=== PATIENT | female | born 1945 | race American Indian/Alaskan Native ===

== ENCOUNTER 2017-05-06 12:14 | Observation (INO) | payer MEDICAID, MEDICARE, OTHER ==
[2017-05-06 12:15] VITALS: BMI 29.9
--- NOTE | 2017-05-06 12:53 | ED PDOC ---
Arrival/HPI - General Chief Complaint: Chest Pain Time Seen by Provider: 05/06/17 12:30 Historian: Patient, Family (daughter) - History of Present Illness Narrative History of Present Illness (Text): 05/06/17 12:40 A 71 year old female, whose past medical history includes colon cancer( surgically removed 8 years ago, no chemotherapy), CVA(3 years ago, was given aspirin), RI, cardiac stents x 3, hypertension, and hyperlipidemia, whom is accompanied by her daughter, presents to the emergency department complaining of chest pain since yesterday. Patient reports not currently experiencing chest pain, only heavy pressure in chest "on and off". Patient notes also experiencing dizziness and near-syncope, but denies of any nausea, vomiting, diarrhea, shortness of breath, or any other complaints at this time. Also, patient mentions taking Aspirin 81 mg prior to arriving at emergency department. Denies any history of substance abuse or smoking; occasional drinker. States in the past took Plavix but stopped intake due to result of bleeding. PMD: Dr. Lulu Chakraborty Time/Duration: 24 hours Symptom Onset: Sudden Symptom Course: Unchanged Quality: Pressure (pressure-like heaviness to chest) Past Medical History - Provider Review Nursing Documentation Reviewed: Yes - Travel History Have you recently traveled outside [place] w/in the past 3 mons?: No - Infectious Disease Hx of Infectious Diseases: None - Reproductive Menopause: Yes - Cardiac Hx Cardiac Disorders: Yes Hx RI: Yes (2004) Hx Hypertension: Yes Other/Comment: HX: CARDIAC STENTS -PT. 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 - Gastrointestinal Hx Gastrointestinal Disorders: Yes Other/Comment: HX: COLON CANCER-HEMICOLECTOMY DONE - Genitourinary/Gynecological Hx Genitourinary Disorders: Yes Other/Comment: HX: HERNIA ABOVE MY VAGINA-REPAIRED" - Psychiatric Hx Psychophysiologic Disorder: No Hx Substance Use: No - Surgical History Hx Coronary Stent: Yes Other/Comment: HX: CARDIAC STENTS-PT. BELIEVES X3. HX: COLON CANCER- HEMICLECTOMY DONE. HX:" HERNIA ABOVE MY VAGINA-REPAIRED" - Anesthesia Hx Anesthesia: Yes Hx Anesthesia Reactions: No Hx Malignant Hyperthermia: No - Suicidal Assessment Feels Threatened In Home Enviroment: No Family/Social History - Physician Review Nursing Documentation Reviewed: Yes Family/Social History: No Known Family HX Smoking Status: Former Smoker Hx Alcohol Use: No Hx Substance Use: No Allergies/Home Meds Allergies/Adverse Reactions: Allergies Iodinated Contrast- Oral and IV Dye [Iodinated Contrast Media - Oral and] Allergy (Severe, Verified 05/06/17 12:28) ANAPHYLAXIS shellfish derived Allergy (Severe, Verified 05/06/17 12:28) ANAPHYLAXIS atorvastatin calcium [From Lipitor] Adverse Reaction (Intermediate, Verified 12:28) "MUSCLE CRAMPS" rosuvastatin calcium [From Crestor] Adverse Reaction (Intermediate, Verified 12:28) "MUSCLE CRAMPS" Home Medications: Home Meds Medication Instructions Recorded Confirmed Metoprolol Succinate [Toprol XL] 2.5 tab PO DAILY 11/11/12 05/06/17 Aspirin [Ecotrin] 81 mg PO DAILY 09/05/16 05/06/17 Clopidogrel [Plavix] 75 mg PO DAILY 09/05/16 05/06/17 amLODIPine [Norvasc] 5 mg PO DAILY 05/06/17 05/06/17 Review of Systems - Review of Systems Constitutional: Normal Eyes: Normal ENT: Normal Respiratory: absent: SOB Cardiovascular: Chest Pain (currently experiencing pressure-like heaviness in chest), Other (near-syncope) Gastrointestinal: absent: Diarrhea, Nausea, Vomiting Genitourinary Female: Normal Musculoskeletal: Normal Skin: Normal Neurological: Dizziness Endocrine: Normal Hemo/Lymphatic: Normal Psychiatric: Normal Physical Exam Vital Signs Reviewed: Yes Vital Signs Temp Pulse Pulse Resp BP BP Pulse Ox 05/06/17 16:38 64 18 141/77 98 05/06/17 12:52 67 154/89 H 05/06/17 12:26 98.8 F 74 17 154/90 H 99 Temperature: Afebrile Blood Pressure: Normal Pulse: Regular Respiratory Rate: Normal Appearance: Positive for: Well-Appearing Pain Distress: None Mental Status: Positive for: Alert and Oriented X 3 - Systems Exam Head: Present: Atraumatic, Normocephalic Pupils: Present: PERRL, Other (left eyepatch) Extroacular Muscles: Present: EOMI, Other (left eye patch) Conjunctiva: Present: Normal Ears: Present: Normal Mouth: Present: Moist Mucous Membranes Pharnyx: Present: Normal Nose (External): Present: Atraumatic Nose (Internal): Present: Normal Inspection Neck: Present: Normal Range of Motion Respiratory/Chest: Present: Clear to Auscultation, Good Air Exchange. No: Respiratory Distress, Accessory Muscle Use Cardiovascular: Present: Regular Rate and Rhythm, Normal S1, S2. No: Murmurs Abdomen: Present: Normal Bowel Sounds. No: Tenderness, Distention, Peritoneal Signs Back: Present: Normal Inspection Upper Extremity: Present: Normal Inspection Lower Extremity: Present: Normal Inspection Neurological: Present: GCS=15, CN II-XII Intact, Speech Normal Skin: Present: Warm, Normal Color Psychiatric: Present: Alert, Oriented x 3, Normal Insight, Normal Concentration Medical Decision Making ED Course and Treatment: 05/06/17 12:45 Impression: 71 year old female with pressure-like heaviness in chest at this time, currently not experiencing chest pain. or took 81mg asa already and will hold off on further a/c due to pt stating dizziness/room spinning and pending ct head. Plan: -- EKG -- Head CT -- Chest X-ray -- Labs -- O2 Nasal Cannula -- Reassess and disposition Prior Visits: Notes and results from previous visits were reviewed. Patient was last seen in the emergency department on 11/11/2012 for left jaw pain. Patient was discharged home. Progress Notes: 05/06/17 13:04 A 71 year old female, whose past medical history includes colon cancer( surgically removed 8 years ago, no chemotherapy), CVA(3 years ago, was given aspirin), RI, cardiac stents x 3, hypertension, and hyperlipidemia, whom is accompanied by her daughter, presents to the emergency department complaining of chest pain since yesterday. Patient reports not currently experiencing chest pain, only heavy pressure in chest "on and off". Patient notes also experiencing dizziness and near-syncope, but denies of any nausea, vomiting, diarrhea, shortness of breath, or any other complaints at this time. Also, patient mentions taking Aspirin 81 mg prior to arriving at emergency department. Denies any history of substance abuse or smoking; occasional drinker. States in the past took Plavix but stopped intake due to result of bleeding. You were otherwise breathing easily, smiling with your daughter, good strength/sensation, clear lungs, no abdomen tenderness, no fever temp 98.8, stable heart rate 74, stable breathing rate 16, excellent oxygen level 99% room air, elevated blood pressure 154/90 which we recommend repeat in 2-3 days primary care office to determine further treatment, you have blood tests no infection count 3.4, stable blood level hemoglobin 13/platelets 237, stable chemistry sodium 142, potassium 4, bicarbonate 25, chloride 108, bun 17, creatinine 0.7, glucose 111, liver AST/ALT 23/23, Liver Alklaline Phosphatase 67 , Liver bilirubin 0.3, magnesium 1.7, heart blood test less 0.01, age appropriate d-dimer test thus no acute sign of clot 323, radiology CT head white matter changes without intracranial hemorrhage, ECG normal sinus rhythm, observation done in the ED with improvement, counselled to monitor symptoms. 05/06/2017 15:[address] IMPRESSION: Cerebral atrophy and nonspecific bilateral white matter changes -inferred as such probable microvascular ischemic changes. Although of the aged these findings is unknown no associated mass effect is appreciated. No intra cerebral hemorrhage or mass effect noted. Dictator: Ramandeep Molina MD 05/06/2017 16:16 Chest X-ray IMPRESSION: Cardiomegaly. No pulmonary venous congestion. No infiltrate. No effusion. Dictator: Ramandeep Mloina MD 05/06/17 16:52 d/w Dr. Webb and the plan is admit, hold off on any anticoagulation at this time, routine trop, consult dr. shah and dr. dick. telemetry. - Lab Interpretations Lab Results: 05/06/17 13:30 05/06/17 13:30 Lab Results 05/06/17 13:30: Sodium 142, Potassium 4.0, Chloride 108 H, Carbon Dioxide 25, Anion Gap 13, BUN 17, Creatinine 0.7, Est GFR ( Amer) > 60, Est GFR (Non- Af Amer) > 60, Random Glucose 111 H, Calcium 9.1, Magnesium 1.7, Total Bilirubin 0.3, AST 32, ALT 23, Alkaline Phosphatase 67, Lactate Dehydrogenase 418, Total Creatine Kinase 90, Troponin I < 0.01, NT-Pro-B Natriuret Pep 88.2, Total Protein 7.8, Albumin 3.9, Globulin 4.0, Albumin/Globulin Ratio 1.0 L 05/06/17 13:30: PT 12.0, INR 1.10 H, APTT 19.4 L, D-Dimer, Quantitative 323 H 05/06/17 13:30: WBC 3.4 L, RBC 4.66, Hgb 13.5, Hct 40.7, MCV 87.3, MCH 29.0, MCHC 33.2, RDW 14.3, Plt Count 237, MPV 9.9, Gran % 58.0, Lymph % (Auto) 26.4, Mckinley % (Auto) 13.8 H, Eos % (Auto) 1.5, Baso % (Auto) 0.3, Gran # 1.98, Lymph # 0.9 L, Mckinley # 0.5, Eos # 0.1, Baso # 0.01 I have reviewed the lab results: Yes - RAD Interpretation Radiology Orders: 05/06/17 14:24 HEAD W/O CONTRAST [CT] Stat CHEST TWO VIEWS (PA/LAT) [RAD] Stat - EKG Interpretation Interpreted by ED Physician: Yes (NSR, flipped t waves avr, avl, flattened iii.) Type: 12 lead EKG NIHSS Stroke Scale 3 - Date/Time Evaluation Performed Date Performed: 05/06/17 Time Performed: 12:40 When Was NIHSS Performed: 24 hours post onset S/S - How Severe is the Stroke Level of Consciousness: 0=Alert LOC to Questions: 0=Both comments correct LOC to commands: 0=Obeys both correctly Best Gaze: 0=Normal Visual: 0=No visual loss Facial: 0=Normal Motor Arm - Left: 0=No drift Motor Arm - Right: 0=No drift Motor Leg - Left: 0=No drift Motor Leg - Right: 0=No drift Limb Ataxia: 0=Absent Sensory: 0=Normal Best Language: 0=No aphasia Dysarthia: 0=Normal articulation Extinction & Inattention (Neglect): 0=Normal, no object Score: 0 - Scribe Statement The provider has reviewed the documentation as recorded by the Scribe Hanan Dabdi Provider Octavio Attestation: All medical record entries made by the Octaivo were at my direction and personally dictated by me. I have reviewed the chart and agree that the record accurately reflects my personal performance of the history, physical exam, medical decision making, and the department course for this patient. I have also personally directed, reviewed, and agree with the discharge instructions and disposition. Disposition/Present on Arrival - Present on Arrival Any Indicators Present on Arrival: No History of DVT/PE: No History of Uncontrolled Diabetes: No Urinary Catheter: No History of Decub. Ulcer: No History Surgical Site Infection Following: None - Disposition Have Diagnosis and Disposition been Completed?: Yes Diagnosis: Chest pain, Dizziness Disposition: HOSPITALIZED Disposition Time: 16:53 Patient Plan: Telemetry Condition: STABLE Discharge Instructions (ExitCare): Chest Pain (ED) Referrals: Lulu Chakraborty MD [Primary Care Provider] - Follow up with primary Forms: [employer] ([place]rian)
[2017-05-06 13:55] LABS: BASO # 0.01 K/mm3 (0.0-2.0); BASO % 0.3 % (0.0-3.0); EOS # 0.1 (0.0-0.7); EOS % 1.5 % (1.5-5.0); GRAN # 1.98 (1.4-6.5); HEMATOCRIT 40.7 % (36.0-48.0); LYMPH # 0.9 (1.2-3.4); LYMPH % 26.4 % (22.0-35.0); MEAN CELL VOLUME 87.3 fl (80.0-105.0); MEAN CORPUSCULAR HGB CONC 33.2 g/dl (31.0-37.0); MEAN PLATELET VOLUME 9.9 fl (7.0-11.0); MONO # 0.5 (0.1-0.6); MONO % 13.8 % (1.0-6.0); RED CELL DISTRIBUTION WIDTH 14.3 % (11.5-14.5); WHITE BLOOD COUNT 3.4 10^3/ul (4.5-11.0)
[2017-05-06 14:05] LABS: INR 1.1 (0.93-1.08); PARTIAL THROMBOPLASTIN TIME 19.4 Seconds (25.1-36.5)
[2017-05-06 14:14] LABS: ALKALINE PHOSPHATASE 67 U/L (38-126); ALT/SGPT 23 U/L (7-56); AST/SGOT 32 U/L (14-36); BILIRUBIN,TOTAL 0.3 mg/dL (0.2-1.3); BLOOD UREA NITROGEN 17 mg/dL (7-21); CALCIUM 9.1 mg/dL (8.4-10.5); CARBON DIOXIDE 25 mmol/L (21-33); CHLORIDE 108 mmol/L (98-107); GFR AFRICAN-AMERICAN > 60; GLUCOSE,RANDOM 111 mg/dL (70-110); MAGNESIUM 1.7 mg/dL (1.7-2.2); SODIUM 142 mmol/L (132-148); TOTAL PROTEIN 7.8 g/dL (5.8-8.3)
[2017-05-06 14:29] LABS: TROPONIN I < 0.01 ng/mL
--- NOTE | 2017-05-06 15:15 | CT ---
PROCEDURE: CT HEAD WITHOUT CONTRAST. HISTORY: 71yoF with hx of stroke and now with dizziness. COMPARISON: None available. TECHNIQUE: Axial computed tomography images were obtained through the head/brain without intravenous contrast. Radiation dose: Total exam DLP = 678 mGy-cm. This CT exam was performed using one or more of the following dose reduction techniques: Automated exposure control, adjustment of the mA and/or kV according to patient size, and/or use of iterative reconstruction technique. FINDINGS: HEMORRHAGE: No intracranial hemorrhage. BRAIN: No mass effect or edema. Bilateral cerebral atrophy with scattered microvascular ischemic changes. This is most conspicuous in the left basal ganglionic region thoracic stent right basal ganglionic region. Both frontal horn/periventricular 8 matter locations left side greater than right side and right centrum semiovale asymmetrical hypodensity without gross mass effect. VENTRICLES: Ventricular prominence-commensurate with the degree of atrophy CALVARIUM: Unremarkable. PARANASAL SINUSES: Minimal ethmoidal sinus mucosal inflammatory changes. MASTOID AIR CELLS: Unremarkable as visualized. No inflammatory changes. OTHER FINDINGS: None. IMPRESSION: Cerebral atrophy and nonspecific bilateral white matter changes -inferred as such probable microvascular ischemic changes. Although of the aged these findings is unknown no associated mass effect is appreciated No intra cerebral hemorrhage or mass effect noted
--- NOTE | 2017-05-06 16:17 | RAD ---
HISTORY: 71yoF, with chest pain COMPARISON: No prior. TECHNIQUE: Chest PA and lateral FINDINGS: LUNGS: No active pulmonary disease. PLEURA: No significant pleural effusion identified. No pneumothorax apparent. CARDIOVASCULAR: Mild cardiomegaly. Minimal tortuosity and arteriovascular calcification thoracic aorta OSSEOUS STRUCTURES: No significant abnormalities. VISUALIZED UPPER ABDOMEN: Normal. OTHER FINDINGS: None. IMPRESSION: Cardiomegaly . No pulmonary venous congestion. No infiltrate. No effusion
[2017-05-06 17:12] LABS: URINE BILIRUBIN NEGATIVE (NEGATIVE); URINE BLOOD NEGATIVE (NEGATIVE); URINE GLUCOSE (UA) NEGATIVE (NEGATIVE); URINE KETONE NEGATIVE (NEGATIVE); URINE LEUKOCYTE ESTERASE NEGATIVE Leu/uL (NEGATIVE); URINE PROTEIN NEGATIVE mg/dL (<30 mg/dL); URINE UROBILINOGEN 0.2 E.U./dL (<1 E.U./dL)
[2017-05-06 17:15] LABS: URINE APPEARANCE CLEAR (CLEAR); URINE COLOR YELLOW (YELLOW)
[2017-05-06] MEDS ORDERED: Enoxaparin 60 mg Syringe SC STA (19:47)
[2017-05-06] MEDS ORDERED: Enoxaparin 80 mg Syringe SC STA (19:49)
[2017-05-06 20:24] LABS: TROPONIN I < 0.01 ng/mL
--- NOTE | 2017-05-07 04:19 | CON ---
DATE: 05/06/2017 CARDIOLOGY CONSULTATION CONSULTATION SERVICE: Cardiology. CONSULTING PHYSICIAN: Dr. Beltran. REASON FOR CONSULTATION: Chest pain under the left breast, dizziness, 3 deaths in the family so the patient is very anxious. BRIEF CLINICAL HISTORY: This is an 71-year-old female with past medical history significant for colon cancer, status post resection, no chemotherapy; history of CVA 3 years ago; history of MD 8 years ago, is status post dual stent 8 to 10 years ago at [facility] by Dr. Guerrero, and then 3 years ago at [facility], being followed at [place] by Dr. Oden, her last instance was 2 to 3 years ago, who was having sharp pain under the breast yesterday and then another pain episode this morning and then the patient experienced very dizziness fall so came to the emergency room. The patient has recently 3 deaths in the family, 2 of the sister , and son last Thursday because of the asthma. So, the patient is very anxious. Denies any chest pain now. Denies any shortness of breath, denies any palpitations now. 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 CURRENT MEDICATIONS: Currently, the patient is taking aspirin 81 mg, amlodipine 5 mg, metoprolol succinate 25 mg daily, clopidogrel 75 mg daily. ALLERGIES: TO IODINE, SHELLFISH, ATORVASTATIN, etc. REVIEW OF SYSTEMS: As per HPI. The patient denies any chest pain or dyspnea on exertion recently. PHYSICAL EXAMINATION: VITAL SIGNS: Temperature afebrile, heart rate 67, and blood pressure 142/71. HEENT: PERRLA. Extraocular muscles are intact. NECK: Supple. No carotid bruits or thyromegaly. CHEST: Clear to auscultation. HEART: S1 and S2, regular. ABDOMEN: Soft. EXTREMITIES: Clubbing and cyanosis negative. LABORATORY DATA: Blood workup as follows: WBC 3.5, hemoglobin 13.8, hematocrit 40.7, platelet count of 234. Chemistry shows sodium 140, potassium 4.8, chloride 108, carbon dioxide 25, anion gap of 13, BUN 17, creatinine 0.7. Troponin 0.01. EKG showed normal sinus, LVH, history of inferior wall MD of undetermined age. IMPRESSION: Atypical chest pain; dizziness, unknown etiology; elevated D-dimer; unlikely having the cardiac event, but given the risk factor and history of significant coronary artery disease, status post myocardial infarction twice, status post stent [address] Guerrero at [facility], recently 3 or 4 years ago at [facility], needs to rule out myocardial infarction, little borderline troponin elevated, possibly normal, but we will get one dose of Lovenox. We will get the duplex scan, and we will get lipid profile, get a hemoglobin A1c. If the troponin remains negative, we will schedule a stress test in the morning. Thank you Dr. Webb for providing the opportunity in taking care of your patient, Leonidas Osborne. Jefe Beltran MD cc: Tiffany Webb MD
[2017-05-07 07:03] LABS: ALB/GLOB RATIO 0.9 (1.1-1.8); ALKALINE PHOSPHATASE 61 U/L (38-126); ALT/SGPT 26 U/L (7-56); AST/SGOT 29 U/L (14-36); BILIRUBIN,TOTAL 0.3 mg/dL (0.2-1.3); BLOOD UREA NITROGEN 16 mg/dL (7-21); CALCIUM 8.8 mg/dL (8.4-10.5); CARBON DIOXIDE 27 mmol/L (21-33); CHLORIDE 108 mmol/L (98-107); CHOLESTEROL 156 mg/dL (130-200); GFR AFRICAN-AMERICAN > 60; GLUCOSE,RANDOM 97 mg/dL (70-110); MAGNESIUM 1.7 mg/dL (1.7-2.2); PHOSPHOROUS 3.7 mg/dL (2.5-4.5); POTASSIUM 4.2 mmol/L (3.6-5.0); SODIUM 142 mmol/L (132-148); TOTAL PROTEIN 7.4 g/dL (5.8-8.3)
[2017-05-07 07:20] LABS: BASO # 0.03 K/mm3 (0.0-2.0); BASO % 0.8 % (0.0-3.0); EOS # 0.1 (0.0-0.7); EOS % 2.8 % (1.5-5.0); GRAN # 2.03 (1.4-6.5); GRAN % 50.9 % (50.0-68.0); HEMATOCRIT 41.5 % (36.0-48.0); LYMPH # 1.5 (1.2-3.4); LYMPH % 37.2 % (22.0-35.0); MEAN CELL VOLUME 88.5 fl (80.0-105.0); MEAN CORPUSCULAR HEMOGLOBIN 28.1 pg (25.0-35.0); MEAN CORPUSCULAR HGB CONC 31.8 g/dl (31.0-37.0); MEAN PLATELET VOLUME 10.3 fl (7.0-11.0); MONO # 0.3 (0.1-0.6); MONO % 8.3 % (1.0-6.0); RED CELL DISTRIBUTION WIDTH 14.5 % (11.5-14.5)
--- NOTE | 2017-05-07 08:42 | HP ---
CHIEF COMPLAINT: Chest pain. HISTORY OF PRESENT ILLNESS: Ms. Swathi Osborne is a 71-year-old female with past medical history of colon cancer, surgically removed 8 years ago. No chemotherapy. No radiation therapy. History of CVA 3-years ago, was on aspirin. She has had myocardial stents x3, hypertension, and hypercholesterolemia, who came with daughter in ER complaining of chest pain since yesterday. The patient reports not currently experiencing chest pain when we examined the patient, only having heaviness and pressure in the chest on and off, also feeling dizzy and near syncope, but denies any nausea, vomiting, diarrhea, fever, hematuria or hematochezia. The patient was taking aspirin 81 mg. No history of substance abuse. The patient was using Plavix, but stopped because of bleeding. PAST MEDICAL HISTORY: As above. History of IL, hypertension, cardiac stenting, blind in the left eye, and as per the patient from chickenpox or zoster as a child, history of colon cancer, herniorrhaphy, cardiac stent. HABITS: Former smoker, now not smoking, no drug, and no ethanol. ALLERGIES: IODINATED CONTRAST, SHELLFISH, ATORVASTATIN, AND CRESTOR. HOME MEDICATIONS: Toprol, Ecotrin, Plavix, and Norvasc. REVIEW OF SYSTEMS: The patient is seen and examined at the bedside. Dr. Beltran, aluminum welder, was also there. At that moment, no nausea, vomiting or diarrhea. No fever. No chills. No headache or dizziness. She was lying down comfortably. PHYSICAL EXAMINATION: VITAL SIGNS: Temperature is 98.8, pulse is 88, respiratory rate is 15, and blood pressure is 179/89. HEENT: Head: Normocephalic, atraumatic. Eyes: PERRLA. Extraocular muscles are intact. Conjunctivae are clear. Nose: Patent. Mucous membranes moist. NECK: Supple. No carotid bruits. No JVD or thyromegaly. CHEST: Bilaterally symmetrical. HEART: S1 and S2 positive. LUNGS: Clear to auscultation. ABDOMEN: Soft. Bowel sounds present. No organomegaly. EXTREMITIES: No edema. No cyanosis. NEUROLOGIC: The patient is awake and alert. Moving all four extremities. No focal deficits. MEDICATIONS: Ecotrin, Norvasc, Toprol, Zestril, and Plavix. LABORATORY DATA: White blood cells 3.4, hemoglobin 13.5, hematocrit 40.7, and platelets 237. Sodium 142, potassium 4.0, BUN 17, creatinine 0.7, and random glucose 111. CAT scan of the head done, showed cerebral atrophy and nonspecific bilateral white matter changes, inferred as such probable microvascular ischemic changes, although these findings is unknown, no associated mass effect is appreciated. ASSESSMENT AND PLAN: Ms. Swathi Osborne is a 71-year-old lady with leukopenia, hyperchloremia, and hyperglycemia. Urinalysis is negative. We admitted the patient. Consult Cardiology Dr. Shaffer. Discussion done with Dr. Beltran. Clearly, the patient will go for stress test tomorrow. Pulmonary consult with Dr. Friend because D-dimers are positive, started on aspirin. Lovenox dose given by Dr. Beltran stat. They put her on amlodipine, Plavix, metoprolol, and Zestril. Because blood pressure is high, we will increase the dosage. Repeat labs. We will follow. Tiffany Webb MD MTDIsaías
--- NOTE | 2017-05-07 09:02 | US ---
HISTORY: Leg pain and swelling. Evaluate for DVT PHYSICIAN(S): Brandon Nunez MD. TECHNIQUE: Duplex sonography and color-flow Doppler with graded compression were used to evaluate the deep venous systems of both lower extremities. FINDINGS: The visualized deep venous systems of both lower extremities are sonographically normal and compressible. Normal wave forms and augmentation are seen. There is no sonographic evidence for deep venous thrombosis in the visualized segments of both lower extremities. IMPRESSION: No sonographic evidence for deep venous thrombosis in the visualized segments of both lower extremities.
--- NOTE | 2017-05-07 10:01 | CARD ---
APPROVED REPORT EKG Measurement Heart [id number] <Conclusion> Normal sinus rhythm Moderate voltage criteria for LVH, may be normal variant Inferior infarct, age undetermined PRWP V 1 - 6
[2017-05-07] MEDS ORDERED: Aminophylline 25 mg/ml Inj ONE (10:08)
[2017-05-07] MEDS: Metoprolol Succinate 25 mg XL Tab PO SCH ×2 (10:36→13:49)
--- NOTE | 2017-05-07 20:25 | CARD ---
APPROVED REPORT Protocol: LEXISCAN Test Type: Lexiscan Sestamibi Stress Test Attending Physician: Dr. Jefe Shaffer Referring Physician: Dr. Tiffany Webb Test Indications: CHest Pain Height:5 ft 2 in Weight:167lbs Medications: Norvasc, ASpirin,Plavix, Zestril, Toprol Medical History: 71 y./o female with a history of CVA, [place], status post multiple PTCA Target HR: 147 bpm Resting ECG: RSR Resting Heart Rate: 55 bpm Resting Blood Pressure: 140/80mmHg Submaximum (85%): 125 bpm PROCEDURE Pharmacologic stress testing was performed using 0.4mg per 5ml of regadenoson given intravenously over 7-10 seconds. POST EXERCISE Reason for Termination: Protocol completed Target HR: No Max HR: 60 bpm 60% of Maximum Predicted HR: 147 bpm Exercise duration: 00:31 min:sec, 0 Stage Exercise capacity: 1.0METs Max Blood Pressure: 140/80mmHg Blood Pressure response to exercise: normal resting BP - appropriate response Heart Rate response to exercise: appropriate Chest Pain: No, none Angina index: 0 Arrhythmia: No, none ST Change: No, none Deviation: 0 mm INTERPRETATION Stress EKG Conclusion: IV LEXISCAN NUCLEAR STRESS TEST NEGATIVE FOR CHEST PAIN. NO ST-T CHANGES. NUCLEAR SCAN REPORT PENDING. Signed by Jefe Shaffer Electronically Approved: 05/07/2017 12:20:25 EXAM: Myocardial Perfusion REST/STRESS Stress Test Type: Pharmacologic Imaging Protocol Rest Spect myocardial perfusion imaging was performed in supine position 50 minutes following the injection of 10.6 mCi of Tc-99 Myoview. At peak stress, the patient was injected intravenously with 30.9mCi of Tc-99 tetrofosmin after an infusion time of 0 minutes and 10 seconds. Gated Stress Spect was performed 70 minutes after intravenous Tc-99 Myoview injection. The images were gated to evaluate regional wall motion and calculate ventricular ejection fraction.Images were reconstructed using backfilter projection method in short horizontal and verticle long axis. Spect slices were generated. LV Perfusion The quality of the study is good. The left ventricle is within normal limits in size. The right ventricle is unremarkable. The lung uptake is normal. The distribution of tracer reveals a small area of moderately decreased perfusion in the distal anteroseptal wall and an area of severely decreased perfusion in the mid to basal inferior wall on the stress study. The remainder of the LV myocardium is unremarkable. The rest myocardial perfusion study shows no significant change. Wall Motion Wall motion study shows inferior hypokinesis of the left ventricle. LVEF = 66%. Conclusion 1. Abnormal SPECT myocardial perfusion study. 2. Fixed, distal anteroseptal and mid to basal inferior defects are suggestive of myocardial injury/infarct. 3. Normal overall LV function despite inferior hypokinesis.
--- NOTE | 2017-05-07 23:44 | PN ---
DATE: 05/07/2017 LOCATION: Patient in room 275, bed 2. REASON FOR CONSULTATION: Chest pain under left breast, dizziness, 3 deaths in the family in the last few weeks including her son who last Thursday because of asthma. SUBJECTIVE: Patient is lying flat in bed without any respiratory distress or palpitation. She states her chest pain has much improved. Denies any palpitation. PHYSICAL EXAMINATION VITAL SIGNS: Blood pressure 147/72, respirations 20, pulse 70. Patient is afebrile. HEENT: Head is normocephalic. Eyes, pupils normal, conjunctivae normal. Nose and throat normal. NECK: JVP low. Carotids equal. THORAX: AP diameter normal. LUNGS: Clear. CARDIOVASCULAR: S1 and S2. ABDOMEN: Soft. No tenderness. No organomegaly. Bowel sounds normal. EXTREMITIES: There is no clubbing, no cyanosis. LABORATORY DATA: WBC 4.0, hemoglobin 13.2, hematocrit 41.5, platelet 265 . Sodium 142, potassium 4.2, BUN 16, creatinine 0.7, calcium 8.8, phosphorus 3.7, magnesium 1.7. Troponin x2 negative. DIAGNOSES: Atypical chest pain, probably musculoskeletal; dizziness, history of coronary artery disease, status post myocardial infarction twice, status post stent insertion [address] Guerrero at [facility] and 3 to 4 years ago at [facility]. PLAN: We will do IV Lexiscan stress test today. We will also do an echocardiogram. In the meantime, patient is on aspirin 81 mg daily, amlodipine 10 daily, Plavix 75 daily, Toprol XL 25 daily, lisinopril 20 mg daily. We will follow with you. Jefe Shaffer MD
--- NOTE | 2017-05-08 03:00 | CON ---
DATE: 05/07/2017 PULMONARY CONSULT REFERRING PHYSICIAN: Dr. Webb REASON FOR CONSULT: Cough and shortness of breath. HISTORY OF PRESENT ILLNESS: This is a 71-year-old female with past medical history significant for colon cancer, resected about 8 years ago, history of stroke, coronary artery disease, history of coronary stent, hypertension, and hyperlipidemia. Had some URI symptom about a week or so ago, which was improving. Comes in with some chest pain and shortness of breath and a pressure like feeling in the chest. Also has some dizzy spell and near syncope. The patient was kept in the hospital, seen by Cardiology, has a cardiac workup in progress. Has mild rhinitis, mild cough. No nausea, vomiting, diarrhea, leg pain, or leg swelling. PAST MEDICAL HISTORY: As per history of present illness. SOCIAL HISTORY: Stopped smoking many years ago. Denied any alcohol use. FAMILY HISTORY: No significant cardiopulmonary disease reported. ALLERGIES: TO IODINE, SHELLFISH, ATORVASTATIN, AND CRESTOR. MEDICATIONS: She is on Ecotrin 81 mg daily, Norvasc 10 mg daily, Plavix 75 mg daily, Toprol-XL 25 mg daily, Zestril 20 mg daily. REVIEW OF SYSTEMS: No headache at present. Rhinitis is better. Mild cough, clear sputum. No more chest pain. No nausea. No vomiting, diarrhea, leg pain or leg swelling. She is blind in the left eye, wearing eye patch. PHYSICAL EXAMINATION: GENERAL: Sitting up, having dinner, in no acute distress. VITAL SIGNS: Temperature is 98, heart rate 63, respiratory rate is 20, blood pressure is 152/80, pulse ox is 97% on room air. HEENT: Moist mucous membranes. Crowded airway. Has a left eye patch. NECK: Supple. No JVD. LUNGS: Have a few scattered rhonchi. HEART: S1 and S2. ABDOMEN: Soft and nontender. No organomegaly. EXTREMITIES: No edema. NEUROLOGIC: Awake and alert. Follows simple commands. LABORATORY DATA: Shows hemoglobin 13.2, hematocrit 41.5, WBC 4.0, platelet count is 265. INR is 1.10. Sodium 142, potassium 4.2, chloride 108, bicarbonate 27, BUN 16, creatinine 0.7, glucose 97, calcium is 8.8, magnesium 1.7, AST 29, ALT 26, alkaline phosphatase is 61, albumin is 3.6. Cholesterol 156, TSH 2.32. Has a CAT scan of the head done on admission, which shows cerebellar atrophy and no specific bilateral white matter changes, microvascular probable ischemic changes, otherwise unremarkable. Chest x-ray done shows cardiomegaly, no infiltrate or effusion. Has a venous Doppler done of lower extremities, no DVT appreciated. IMPRESSION AND PLAN: Cardiomyopathy, coronary artery disease, history of coronary stent, hyperlipidemia, history of cerebrovascular accident, history of colon cancer in the remote past, left eye blind, resolving upper respiratory tract infection. The patient is being discharged home. She feels better. No more chest pain. No more shortness of breath. No leg pain. The patient should have outpatient pulmonary function tests. Consider sleep study. Thank you and we will follow with you. Jefe Friend MD
--- NOTE | 2017-05-08 03:31 | PN ---
DATE: 05/07/2017 SUBJECTIVE: The is a 71-year-old female. The patient seen and examined at the beside, looking comfortable. No nausea or vomiting. No diarrhea. No hematuria or hematochezia. Daughter was sitting on the bedside also. No more chest pain. Went for stress test. Results are pending at that moment. No fever. No chills. Decided that the patient will go home if stress test will be negative and cleared by the [facility]. PHYSICAL EXAMINATION VITAL SIGNS: Temperature 98, pulse 70, blood pressure 158/80 and respiratory rate 21. HEENT: Head is normocephalic and atraumatic. Eyes; PERRLA. Extraocular muscles are intact. Conjunctivae clear. Nose patent. Mucous membranes moist. NECK: Supple. No carotid bruits, JVD or thyromegaly. CHEST: Bilaterally symmetrical. HEART: S1 and S2 positive. LUNGS: Clear to auscultation. ABDOMEN: Soft. Bowel sounds positive. No organomegaly. EXTREMITIES: No edema. No cyanosis. NEUROLOGICAL: The patient is awake and alert. Moving all 4 extremities. No focal deficit. MEDICATIONS: Ecotrin, Norvasc, Plavix, Toprol, and Zestril. LABORATORY DATA: White blood cells 4.0, hemoglobin 13.2, hematocrit 41.5 and platelets 265. Sodium 142, potassium 4.2, BUN 16, creatinine 0.6, glucose 97. Liver function test within normal limits. ASSESSMENT AND PLAN: Ms. India Lauren is a 70-year-old lady with leukopenia, hyperchloremia, hyperglycemia, came with chest pain. Stress test was done according to Dr. Alirio Isaacs. Abnormal SPECT myocardial perfusion study. Fixed distal anteroseptal and inferior defects suggestive of myocardial infarction and injury. Normal overall left ventricular function despite inferior hypokinesis. Echocardiography done, result are pending. Bilateral extremity Doppler done and seen by Dr. Jefe Beltran, [facility]. CAT scan of the head done. No sonographic evidence of a deep vein thrombosis in the visualized segment of the both lower extremities. We will wait with Dr. Beltran's input. Gastrointestinal and deep venous thrombosis prophylaxis. Repeat labs. We will follow up. Tiffany Webb MD MTDIsaías
[2017-05-08 06:03] VITALS: BP 168/76; PULSE 73; RESP 19; TEMP 97.5; O2SAT 97
--- NOTE | 2017-05-08 11:05 | PN ---
DATE: REASON FOR CONSULTATION AND FOLLOWUP: Chest pain under the left breast, dizziness, 3 deaths in the family including a son, buried last Thursday. Admitted with chest pain and negative stress test. SUBJECTIVE: The patient feels better. PHYSICAL EXAMINATION: VITAL SIGNS: As follows; temperature is afebrile, heart rate 73, and blood pressure 168/76. HEENT: PERRLA. Extraocular muscles intact. NECK: Supple. No carotid bruits or thyromegaly. CHEST: Clear to auscultation. HEART: S1 and S2. Regular. ABDOMEN: Soft. EXTREMITIES: Clubbing and cyanosis negative. LABORATORY DATA: Blood workup as follows: WBC 4, hemoglobin 13.2, hematocrit 41.5, and platelet count 265. Chemistry shows sodium 142, potassium 4.2, chloride 108, carbon dioxide , anion gap of 12, BUN 6, and creatinine 0.7. TSH is 2.32. Triglycerides 93, cholesterol 156, LDL 93, and HDL 40. Stress test read as abnormal fixed defect. No reversible ischemia. Ejection fraction reported as 66%. IMPRESSION: History of coronary artery disease, three stents, history of myocardial infarction, abnormal stress test, fixed defect, no reversible ischemia, and atypical chest pain. No evidence of acute myocardial infarction. No evidence of acute coronary syndrome. Chest pain as mentioned is most likely musculoskeletal. History of coronary artery disease, history of stent 8 years ago at [facility] and 4 years ago at [facility]. RECOMMENDATIONS: Suggested the patient to continue aspirin, continue Plavix, continue Toprol-XL, continue lisinopril, 10 mg of amlodipine was increased by Dr. Webb starting today. Continue aggressive medical treatment and we will discontinue telemetry. No further cardiac workup is planned. Further recommendation as per Dr. Webb. The patient is cleared from Cardiology point of view to be discharged. No further cardiac workup is planned. The patient upon discharge to be followed with Dr. Oden at [place], our office telephone number is given. If the patient change her mind to come, but we suggested and encouraged the patient to continue with PMD. Health Care Coordinator is Dr. Oden. Jefe Beltran MD
--- NOTE | 2017-05-08 17:46 | CARD ---
APPROVED REPORT EXAM: Two-dimensional and M-mode echocardiogram with Doppler and color Doppler. INDICATION Chest Pain LVFX 2D DIMENSIONS Left Atrium (2D)4.7 (1.6-4.0cm)IVSd1.4 (0.7-1.1cm) LVDd4.6 (3.9-5.9cm)PWd1.4 (0.7-1.1cm) LVDs3.0 (2.5-4.0cm)FS (%) 34.3 % LVEF (%)63.3 (>50%) M-Mode DIMENSIONS Aortic Root3.30 (2.2-3.7cm)Aortic Cusp Exc.1.70 (1.5-2.0cm) Aortic Valve AoV Peak Cijogfpg711.0cm/Natalie Peak GR.8mmHgAI P 1/2 [id number] Mitral Valve MV E Zpiczhdj36.3cm/sMV A Vosqchxn36.5cm/sE/A ratio0.7 TDI Lateral E' Peak V6.24cm/sMedial E' Peak V3.61cm/sE/Lateral E'8.4 E/Medial E'14.5 Pulmonary Valve PV Peak Lcypvzni89.7cm/sPV Peak Grad.2mmHg Tricuspid Valve TR Peak Uhtgggvd000yc/sRAP [id number] Peak Gr.24mmHg [id number] LEFT VENTRICLE The left ventricle is normal size. There is mild concentric left ventricular hypertrophy. The left ventricular function is normal.Ef-60-65% There is normal LV segmental wall motion. Transmitral Doppler flow pattern is Grade III-reversible restrictive diastolic dysfunction. No left ventricle thrombus noted on this study. There is no ventricular septal defect visualized. There is no left ventricular aneurysm. There is no mass noted in the left ventricle. RIGHT VENTRICLE The right ventricle is normal size. There is normal right ventricular wall thickness. The right ventricular systolic function is normal. AORTIC VALVE The aortic valve is calcified but opens well. There is moderate aortic regurgitation. There is no aortic valvular stenosis. There is no aortic valvular vegetation. MITRAL VALVE The mitral valve is thickened but opens well. Mitral annular calcification is mild to moderate. Mitral regurgitation is moderate. There is no mitral valve stenosis. There is no evidence of mitral valve prolapse. TRICUSPID VALVE The tricuspid valve leaflets are thickened , but open well. There is mild tricuspid regurgitation.RVSP-34 mmof Hg. There is no tricuspid valve stenosis. There is no tricuspid valve prolapse or vegetation. PULMONIC VALVE The pulmonary valve is normal in structure. There is trace to mild pulmonic valvular regurgitation. There is no pulmonic valvular stenosis. GREAT VESSELS The aortic root is normal in size. The ascending aorta is normal in size. The pulmonary artery is normal. The IVC is normal in size and collapses >50% with inspiration. PERICARDIAL EFFUSION There is no pleural effusion. There is no pericardial effusion. <Conclusion> The left ventricle is normal size. There is mild concentric left ventricular hypertrophy. The left ventricular function is normal.Ef-60-65% There is moderate aortic regurgitation. Mitral regurgitation is moderate. There is mild tricuspid regurgitation.RVSP-34 mmof Hg. There is trace to mild pulmonic valvular regurgitation. The IVC is normal in size and collapses >50% with inspiration. There is no pericardial effusion.
== END 2017-05-08 09:32 | disposition home or self-care (01) ==
LOC: ED 12:14 → ERH 16:50 → 2RSO 18:44
PROVIDERS: ADMIT Internal Medicine; ATTEND Internal Medicine
DX: R07.89 Other chest pain (principal); I25.10 Atherosclerotic heart disease of native coronary artery without angina pectoris; I25.2 Old myocardial infarction; J06.9 Acute upper respiratory infection, unspecified; I10 Essential (primary) hypertension; E78.00 Pure hypercholesterolemia, unspecified; R73.9 Hyperglycemia, unspecified; I42.9 Cardiomyopathy, unspecified; H54.62 Unqualified visual loss, left eye, normal vision right eye; Z85.038 Personal history of other malignant neoplasm of large intestine; Z86.73 Personal history of transient ischemic attack (TIA), and cerebral infarction without residual deficits; Z95.5 Presence of coronary angioplasty implant and graft; Z87.891 Personal history of nicotine dependence; Z79.02 Long term (current) use of antithrombotics/antiplatelets; Z79.82 Long term (current) use of aspirin